=== PATIENT | female | born 1950 | race Caucasian/White ===

== ENCOUNTER 2019-08-18 06:08 | Day surgery (SDC) | payer MEDICARE, OTHER ==
[~2019-08-18 06:08] MED LIST: CLINDAMYCIN PHOSPHATE IV 900 MG in IV DEXTROSE 5% 100 ML IV ONE
[2019-08-18] MEDS ORDERED: PROPOFOL 200 MG/20 ML BOTTLE IV ONE (06:09)
[2019-08-18] MEDS ORDERED: EPHEDRINE SULFATE 50 MG/ML AMPUL IM ONE (06:09)
[2019-08-18] MEDS ORDERED: DEXAMETHASONE SOD PHOSPHATE 4 MG INJ IV ONE (06:09)
[2019-08-18] MEDS ORDERED: ONDANSETRON 4 MG/2 ML VIAL IV ONE (06:09)
[2019-08-18] MEDS ORDERED: IV NORMAL SALINE 1000 ML BAG IV ONE (06:09)
[2019-08-18] MEDS ORDERED: KETOROLAC TROMETHAMINE 30 MG INJ IM ONE (06:09)
[2019-08-18] MEDS ORDERED: LIDOCAINE HCL 2% 20 ML VIAL ONE (08:04)
[2019-08-18] MEDS ORDERED: BUPIVACAINE PF 0.5% 30 ML VIAL ONE (08:04)
[2019-08-18] MEDS ORDERED: MIDAZOLAM HCL 10 MG/2 ML VIAL ONE (08:23)
[2019-08-18] MEDS ORDERED: BACITRACIN 50,000 UNITS VIAL ONE ×2 (08:33→10:19)
[2019-08-18] MEDS ORDERED: PROPOFOL 100 ML ONE (08:57)
[2019-08-18] MEDS ORDERED: HYDROCODONE/APAP 5-325MG TABLET ONE (14:06)
== END 2019-08-18 15:00 | disposition home or self-care (01) ==
LOC: DS 06:08
PROVIDERS: ATTEND Podiatrist Foot & Ankle Surgery
DX: M19.071 Primary osteoarthritis, right ankle and foot (principal); T85.848A Pain due to other internal prosthetic devices, implants and grafts, initial encounter; T84.84XA Pain due to internal orthopedic prosthetic devices, implants and grafts, initial encounter; M79.671 Pain in right foot; M20.41 Other hammer toe(s) (acquired), right foot; M85.871 Other specified disorders of bone density and structure, right ankle and foot; F41.9 Anxiety disorder, unspecified; Z88.1 Allergy status to other antibiotic agents; Z79.899 Other long term (current) drug therapy; Z98.890 Other specified postprocedural states; X58.XXXA Exposure to other specified factors, initial encounter; Y93.89 Activity, other specified; Y92.89 Other specified places as the place of occurrence of the external cause; Y99.8 Other external cause status
CPT/HCPCS: 20680; 28124; 28285 ×2; 28296; 73630 ×2; 88304; J1100; J1885; J2250; J2405; J3490 ×6; J7060; J7120; A4649; A4663; J7030